=== PATIENT | female | born 1980 | race Caucasian/White ===

== ENCOUNTER 2021-12-26 12:48 | Emergency (ER) | payer BC, SELFPAY ==
[2021-12-26] VITALS (11 sets, daily range): BP systolic 113–133; BP diastolic 80–90; PULSE 86–88; RESP 16–20; TEMP 36.6; O2SAT 98–100
--- NOTE | ~2021-12-26 | CT_ITS ---
EXAMINATION: CT abdomen pelvis wo con DATE: 12/26/2021 16:24 INDICATION: Left flank pain TECHNIQUE: Computed tomography (CT) of the abdomen and pelvis was performed without intravenous contr ast. The dose-length product (DLP) was 388.75 mGy-cm. Automated exposure control and iterative recons truction technique were employed. COMPARISON: None FINDINGS: The lung bases are clear. The heart size is normal. The liver, spleen, pancreas, gallbladde r, and adrenal glands are normal. There is a 5 mm stone at the left ureterovesicular junction. The ki dneys are unremarkable. No pathologically enlarged abdominal or pelvic lymph nodes are identified. Th ere is no free intraperitoneal gas or evidence of bowel obstruction. The visualized osseous structure s are unremarkable. IMPRESSION: 1. 5 mm stone at the left ureterovesicular junction. Reviewed, dictated and finalized at location B. [employer]
[2021-12-26 13:37] LABS: Bacteria Urine Trace /hpf; Mucus Urine Rare /lpf; WBC Urine 0-3 /hpf
[2021-12-26 14:46] LABS: Add Urine Microscopic? YES; Appearance Urine Clear (Clear); Color Urine Red (Yellow)
--- NOTE | 2021-12-26 16:25 | ED.FEMALEGU ---
HPI - Female Genitourinary General Chief complaint: Urogenital-Female Stated complaint: Kidney stone last week, unresolved Time Seen by Provider: 12/26/21 15:54 Source: patient and RN notes reviewed Mode of arrival: ambulatory Limitations: no limitations History of Present Illness HPI Narrative: This is a 41 year old female who presents for evaluation of painful urination. Patient reports increased urinary frequency and hesitancy for 1 week. She was having left flank pain initially that radiated to her groin. She was seen by her PCP, and she had outpatient labs with CT. She reports her CT scan did not show anything. She was started on antibiotics but she was told that her culture was negative. She continues to have painful urinary and increased frequency. Her flank pain has resolved. She denies hematuria, nausea, vomiting, fever, chills. She states she was told to come to ER for repeat scan. She is also taking AZO Related Data Allergies Allergy/AdvReac Type Severity Reaction Status Date / Time No Known Allergies Allergy Verified 12/26/21 17:26 Review of Systems Review of Systems: All systems reviewed & are unremarkable except as noted in HPI and below Constitutional: Constitutional: Denies chills and Denies fatigue Respiratory: Respiratory: Denies chest congestion and Denies cough Gastrointestinal: Gastrointestinal: Reports abdominal pain, Denies nausea and Denies vomiting Genitourinary: Genitourinary: Reports nocturia, Reports dysuria and Reports flank pain PMFSH Past Medical History Medical History (Updated 12/26/21 @ 17:26 by Suyapa Stephens MD) Patient denies medical problems Social History Social History (Updated 12/26/21 @ 16:33 by Suyapa Stephens MD) Smoking status: Never smoker Exam Const: General: no acute distress and alert Nutritional Appearance: well nourished HENMT: Head: normal to inspection Throat: posterior oropharynx normal Eyes: EOM: EOMs intact bilaterally Neck: Neck: normal visual inspection Chest: Chest palpation & inspection: normal inspection of the chest Resp: Effort & Inspection: normal respiratory effort Auscultation: clear to auscultation bilaterally Cardio: Rate: regular rate Rhythm: regular rhythm Heart sounds: no murmurs GI: GI Palp: Yes Soft to palpation, No Tenderness to palpation present (GI), No Guarding due to palpation present (GI) and No Rigid due to palpation Auscultation: normal bowel sounds : General: Yes no CVA tenderness Back/Spine/Pelvis: Back: no CVA tenderness Skin: General skin exam: normal color Rashes: no rashes Wounds: no wounds Neuro: General: patient oriented x3, moves all extremities and CN's II-XI intact bilaterally Cranial nerves: Yes Nystagmus not present Extrem: General: normal to inspection Psych: Appearance: grossly normal Mental Status: mental status grossly normal Affect: normal affect Attitude: cooperative Course Reevaluation(s) Reevaluation #1: I Discussed with patient that CT does shows ureteral stone as the cause of her pain. I Discussed with discharge plan. Date: 12/26/21 Time: 17:21 Vital Signs Vital signs: Vital Signs Temperature 97.8 F 12/26/21 13:04 Pulse Rate 88 12/26/21 13:04 Respiratory Rate 20 12/26/21 13:04 Blood Pressure 133/90 12/26/21 13:04 Pulse Oximetry 99 12/26/21 13:04 Oxygen Delivery Room Air 12/26/21 13:04 Temperature 97.8 F 12/26/21 13:04 Pulse Rate 86 12/26/21 18:28 Respiratory Rate 16 12/26/21 18:28 Blood Pressure 113/80 12/26/21 18:28 Pulse Oximetry 98 12/26/21 18:30 Oxygen Delivery Room Air 12/26/21 13:04 MDM - Female Genitourinary Lab Data Attestation: I reviewed the patient's lab results. Result diagrams: 12/26/21 16:53 12/26/21 16:53 Labs: Lab Results 12/26/21 12/26/21 12/26/21 Range/Units 13:14 16:53 16:53 WBC 10.9 H (4.5-10.0) K/mm3 RBC 4.30 (4.2-5.4) M/mm3 Hgb 13.1
[2021-12-26 17:02] LABS: Basophils Percent Auto 0.3 % (0.2-1.2); Eosinophils Absolute Auto 0.1 K/mm3 (0-0.3); Eosinophils Percent Auto 1.2 % (0-4.4); Hematocrit 38.9 % (37.0-47.0); Hemoglobin 13.1 g/dL (12.0-15.0); Immature Granulocyte Absolute 0.04 K/mm3 (0.00-0.031); Immature Granulocyte Percent A 0.4 % (0-0.5); Lymphocytes Absolute Auto 3.32 K/mm3 (0.9-3.2); Lymphocytes Percent Auto 30.5 % (18.3-44.2); Mean Corpuscular HGB Conc 33.7 g/dl (32-36); Mean Corpuscular Hemoglobin 30.5 pg (26-34); Mean Corpuscular Volume 90.5 fl (80-100); Mean Platelet Volume 9.5 fl (7.4-10.4); Monocytes Absolute Auto 0.5 K/mm3 (0.1-0.6); Monocytes Percent Auto 4.7 % (2.6-8.5); Neutrophils Absolute Auto 6.8 K/mm3 (1.3-6.7); Neutrophils Percent Auto 62.9 % (45.5-73.1); Platelet Count Result 379 k/mm3 (150-375); Red Cell Distribution Width 12.6 % (11.5-14.5); White Blood Count 10.9 K/mm3 (4.5-10.0)
[2021-12-26 17:18] LABS: Alanine Aminotransferase 23 U/L (6-35); Albumin Level 4.4 g/dL (3.5-5.1); Alkaline Phosphatase 86 U/L (38-126); Anion Gap 12 mmol/L (8-16); Aspartate Amino Transferase 29 U/L (14-36); Bilirubin,Total 0.4 mg/dL (0.2-1.3); Blood Urea Nitrogen 13 mg/dL (7-17); Calcium 9.5 mg/dL (8.4-10.2); Carbon Dioxide 27 mmol/L (22-30); Chloride 98 mmol/L (98-107); Estimated CRCL calculation 102 ml/min; Estimated Glomerular Filt Rate > 60; Glucose 93 mg/dL (65-110); Potassium 4.1 mmol/L (3.4-5.0); Sodium 137 mmol/L (137-145)
[2021-12-26] MEDS: TAMSULOSIN HCL 0.4 MG CAPSULE PO (18:31)
[2021-12-26] MEDS: KETOROLAC 30 MG/ML VIAL (*BKC) IV PUSH (18:31)
== END 2021-12-26 18:39 | disposition home or self-care (01) ==
PROVIDERS: Emergency Medicine; Emergency Provider General Practice
DX: N20.1 Calculus of ureter (principal)
CPT/HCPCS: 36415; 74176; 80053; 81001; 81025; 85025; 96374; 99284; A9270; J1885

== ENCOUNTER 2023-01-02 14:58 | Emergency (ER) | payer OTHER, SELFPAY ==
[2023-01-02 15:19] VITALS: BP 123/77; PULSE 105; RESP 16; TEMP 37.1; O2SAT 99
[2023-01-02 15:20] VITALS: BP 123/77; PULSE 105; RESP 16; TEMP 37.1; O2SAT 99
--- NOTE | 2023-01-02 15:34 | ED.GENADULT ---
HPI - General Adult General Chief complaint: Wound/Laceration Stated complaint: dog bite left hand Time Seen by Provider: 01/02/23 15:34 Source: patient Mode of arrival: ambulatory Limitations: no limitations History of Present Illness HPI narrative: 42-year-old female patient presents to [facility] with complaints of a dog bite to the left pinky finger. Patient states that she has a 1-year-old dog that they were playing and accidentally bit her pinky finger. Vaccinations for the dog are up-to-date. Patient aware of when her last tetanus shot was. Related Data Home Medications Medication Instructions Recorded Confirmed ergocalciferol (vitamin D2) 1,250 01/02/23 01/02/23 mcg (50,000 unit) capsule etonogestrel 0.12 mg-ethinyl vag ring vaginal 01/02/23 estradiol 0.015 mg/24 hr vaginal ring (EluRyng) sertraline 50 mg tablet mg 01/02/23 Allergies Allergy/AdvReac Type Severity Reaction Status Date / Time No Known Allergies Allergy Verified 01/02/23 15:16 Review of Systems Review of Systems: CONSTITUTIONAL: Denies fever, chills, or sweats. EYES: Denies visual changes, redness, or discharge. ENT: Denies rhinorrhea, congestion, sore throat, or otalgia. CARDIOVASCULAR: Denies chest pain, palpitations, or edema. RESPIRATORY: Denies cough or dyspnea. GASTROINTESTINAL: Denies abdominal pain, nausea, vomiting, or diarrhea. GENITOURINARY: Denies dysuria or hematuria. SKIN: Denies rash or itching. Positive laceration left pinky finger MUSCULOSKELETAL: Denies back pain, joint pain, or myalgia. NEUROLOGIC: Denies headache, numbness, or weakness. PSYCHIATRIC: Denies anxiety or depression. PMFSH Past Medical History Medical History Patient denies medical problems Social History Social History Smoking status: Never smoker Comments At the time of my signature I agree with nursing past medical history, surgical, social, and family history. There is no relevant family history pertinent to the presenting complaint. Exam Narrative: GENERAL: Well-appearing, well-nourished, and in no acute distress. HEAD: Normocephalic, atraumatic. EYES: PERRLA and EOMI. ENT: Nares clear, no rhinorrhea or epistaxis. Mucous membranes moist. NECK: Supple. No lymphadenopathy CHEST: Clear to auscultation. No respiratory distress. HEART: Regular rate and rhythm. No murmur heard. Normal peripheral pulses. ABDOMEN: Soft, nontender, nondistended, normal active bowel sounds. EXTREMITIES: Normal range of motion. No edema. SKIN: Warm, dry, no rash. Patient has possibly 1 cm linear laceration to the lateral side of the left pinky finger. The laceration is in between the PIP and MIP joints. NEURO: No focal deficits. Alert and oriented x3. Course Course Level of Care: Express Care Visit Vital Signs Vital signs: Vital Signs Temperature 37.1 C 01/02/23 15:19 Pulse Rate 105 H 01/02/23 15:19 Respiratory Rate 16 01/02/23 15:19 Blood Pressure 123/77 01/02/23 15:19 Pulse Oximetry 99 01/02/23 15:19 Oxygen Delivery Room Air 01/02/23 15:19 Temperature 37.1 C 01/02/23 15:20 Pulse Rate 105 H 01/02/23 15:20 Respiratory Rate 16 01/02/23 15:20 Blood Pressure 123/77 01/02/23 15:20 Pulse Oximetry 99 01/02/23 15:20 Oxygen Delivery Room Air 01/02/23 15:20 Vital signs reviewed. Procedures Laceration Laceration 1: Date: 01/02/23 Time: 16:02 Site: hand Side (If applicable): left Size (cm): 1 Description: linear Depth: simple, single layer Local Anesthetic: none Amount of anesthesia used (mL): 0 Pre-repair: wound explored, irrigated and irrigated extensively ====== Skin Level ====== Skin layer closed with: steri strips Number of sutures: 1 ====== Subcutaneous Layer ====== ====== Muscle Layer =
[2023-01-02] MEDS: TETANUS,DIPHTHERIA,AC PERTUSSIS ADULT (0.5 ML) BOOSTRIX IM (15:47)
== END 2023-01-02 16:04 | disposition home or self-care (01) ==
PROVIDERS: Emergency Provider Nurse Practitioner Family
DX: S61.217A Laceration without foreign body of left little finger without damage to nail, initial encounter (principal); W54.0XXA Bitten by dog, initial encounter; Z23 Encounter for immunization
CPT/HCPCS: 90471; 90715; 99213; G0463